=== PATIENT | female | born 1980 | race Caucasian/White ===

== ENCOUNTER 2017-05-10 04:37 | Emergency (ER) | payer SELFPAY ==
[~2017-05-10] VITALS: Ht 172.7 cm; Wt 130.0 kg
[~2017-05-10 04:37] MED LIST: IBUP800T23 PO; PERC5TAB12 PO
[2017-05-10 04:41] VITALS: BP 162/99; PULSE 85; RESP 16; TEMP 98.4; O2SAT 95
[2017-05-10] MEDS ORDERED: PROPARACAINE HCL 0.5% OPHT SOLN 15 ML BTL EACH EYE ONE (05:00)
[2017-05-10] MEDS ORDERED: OFLOXACIN 0.3% OPTH SOLN 5 ML BTL RIGHT EYE ONE (05:00)
--- NOTE | 2017-05-10 05:02 | PD ---
HPI Chief Complaint: Eye Problems/Injury Time Seen by Provider: 04:48 Travel History International Travel<30 days: No Contact w/Intl Traveler<30days: No Traveled to known affect area: No History of Present Illness HPI 37-year-old white female presents to emergency department with complaints of right eye pain. The patient does wear contacts. In the last 24 hours she felt as if there were something underneath her contact. She states that she had removed her contact. She's had blurred vision, photophobia, tearing and pain since then. She denies any diplopia. No matting. No direct trauma. PFSH Past Medical History Narrative Medical Hypertension, Bipolar, cutting Diminished Hearing: No Hypertension: Yes Tetanus Vaccination: > 5 Years ?: Not Dilation and Curettage (D&C): Yes Past Surgical History Surgical History: No Previous Surgery Social History Alcohol Use: No Tobacco Use: No Substance Use: No Allergies-Medications (Allergen,Severity, Reaction): Coded Allergies: No Known Allergies (Unverified Adverse Reaction, Unknown, 05/10/17) Reported Meds & Prescriptions Reported Meds & Active Scripts Active Ibuprofen 800 Mg Tab 800 Mg PO Q6H PRN Percocet 5-325 mg (Oxycodone/Acetaminophen) 1 Tab 1-2 Tab PO Q6H PRN Review of Systems General / Constitutional: No: Fever Eyes: Positive: Blurred Vision, Photophobia, Redness, Foreign Body Sensation, Pain, Tearing, Visual changes, No: Diploplia, Drainage HENT: No: Headaches Cardiovascular: No: Chest Pain or Discomfort Respiratory: No: Shortness of Breath Gastrointestinal: No: Abdominal Pain Genitourinary: No: Dysuria Musculoskeletal: No: Pain Skin: No Rash Neurologic: No: Weakness Psychiatric: No: Depression Endocrine: No: Polydipsia Hematologic/Lymphatic: No: Easy Bruising Physical Exam Narrative GENERAL: Well-developed, well-nourished in no acute distress. Nontoxic appearing. HEAD: Normocephalic, atraumatic. EYES: Pupils equal round and reactive. Extraocular motions intact. No scleral icterus. No injection or drainage in the left eye. The right eye is injected and she has swelling of the upper and lower eyelids. On direct visual inspection I can see a corneal ulcer just outside the central vision at the 10: 00 hour. One drop of Alcaine is instilled in the right eye. Fluorescein confirms this. The lids are flipped and no foreign body seen. ENT: TMs clear without erythema. The external auditory canals clear. Nose: clear . Posterior pharynx is pink and moist. No tonsillar edema or exudate. Uvula midline. Airway patent. NECK: Trachea midline.Supple, nontender, moves head freely. No central bony tenderness or spasm. CARDIOVASCULAR: Regular rate and rhythm without murmurs, gallops, or rubs. RESPIRATORY: Clear to auscultation. Breath sounds equal bilaterally. No wheezes , rales, or rhonchi. GASTROINTESTINAL: Abdomen soft, non-tender, nondistended. No hepato-splenomegaly , or palpable masses. No guarding. EXTREMITIES: No clubbing, cyanosis, or edema. No joint tenderness, effusion, or edema noted. BACK: Nontender without deformity or crepitance. No flank tenderness. Data Data Last Documented VS Vital Signs Date Time Temp Pulse Resp B/P (MAP) Pulse Ox O2 Delivery O2 Flow Rate FiO2 05/10/17 04:41 98.4 85 16 162/99 (120) 95 Room Air Orders Orders Proparacaine 0.5% Opth Soln (Alcaine 0.5 (05/10/17 05:00) Ofloxacin 0.3% Opth Soln (Ocuflox 0.3% O (05/10/17 05:00) [facility] Medical Decision Making Medical Screen Exam Complete: Yes Emergency Medical Condition: Yes Medical Record Reviewed: Yes Differential Diagnosis MDM: High Differential diagnoses: Acute conjunctivitis (bacterial, viral, allergic, traumatic), glaucoma, iritis, traumatic globe injury, foreign body, corneal abrasion, corneal ulcer, diabetic retinopathy, photokeratitis, herpes keratitis , CMV retinitis Narrative Course Patient has a right corneal ulcer Diagnosis Primary Impression: right eye corneal ulcer Referrals: Teresa Choi MD 2 days Patient Instructions: General Instructions Departure Forms: Tests/Procedures, Work Release Special Instructions: No work 2 days. Additional Instructions: Rest. No contacts until released by ophthalmology. One drop of Ocuflox in the right eye one drop every 15 minutes for the first hour then 1 drop every hour until you see the eye doctor. Return to the ER if any problems. Med/Other Pt SpecificInfo: Prescription(s) given Disposition: 01 DISCHARGE HOME Condition: Stable Philip Shen May 10, 2017 05:01
== END 2017-05-10 05:30 | disposition home or self-care (01) ==
LOC: NEPD 04:37
DX: H16.001 Unspecified corneal ulcer, right eye (principal); I10 Essential (primary) hypertension; F31.9 Bipolar disorder, unspecified
CPT/HCPCS: 99283